=== PATIENT | female | born 1955 | race Caucasian/White ===

== ENCOUNTER 2024-01-23 15:40 | Emergency (ER) | payer MEDICARE, SELFPAY ==
[2024-01-23 15:27] VITALS: BP 102/78; PULSE 76; RESP 15; TEMP 37; O2SAT 98
--- NOTE | 2024-01-23 15:45 | DI.RAD_ITS ---
Exam(s) XR WRIST LT COMPLETE EXAM: XR WRIST LT COMPLETE CLINICAL HISTORY: WRIST PAIN. TECHNIQUE: 2D digital imaging was performed. COMPARISON: No exams were available for comparison FINDINGS: 3 views There is an impacted fracture of the distal radius which approaches the radio carpal articulation. T here is mild positive ulnar variance. Ulnar styloid tip is intact. Scaphoid and scapholunate distan ce normal.. No other fractures identified. No radiopaque foreign bodies. IMPRESSION: Comminuted impacted fracture of the distal radius. There appears to be some articular involvement. Mild positive ulnar variance. DATA REPOSITORY: RADIATION DOSE DELIVERED:
--- NOTE | 2024-01-23 15:45 | RT.EKG_ITS ---
APPROVED REPORT Exam: Resting ECG Reason for Exam: SYNCOPE Patient Location: E HR:74 bpm ECG Measurements Heart Rate 74 AXIS MS 177 P 71 QRSd 104 QRS 66 QT 446 T 68 QTc 496 Conclusion Sinus rhythm. 74 normal axis no stemi
[2024-01-23] MEDS: ACETAMINOPHEN 1,000 MG/100 ML BTL 400 MG IVPB (16:03)
[2024-01-23] MEDS: Ketorolac 15 MG/ML VIAL 10 MG IVP (16:04)
[2024-01-23] MEDS: Ondansetron 4 MG/2 ML VIAL IVP (16:04)
[2024-01-23 17:06] VITALS: BP 102/78; PULSE 76; RESP 15; TEMP 37; O2SAT 98
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
== END 2024-01-23 17:48 | disposition home or self-care (01) ==
PROVIDERS: Emergency Provider Emergency Medicine
DX: S52.592A Other fractures of lower end of left radius, initial encounter for closed fracture (principal); V18.3XXA Person boarding or alighting a pedal cycle injured in noncollision transport accident, initial encounter; Y93.55 Activity, bike riding
CPT/HCPCS: 29125; 93005; 96365; 96375; 99284; 73110; 93010; J0131; J1885; J2405